=== PATIENT | female | born 1975 | race Asian ===

== ENCOUNTER 2018-04-15 12:51 | Emergency (ER) | payer OTHER ==
[~2018-04-15] VITALS: Ht 160 cm; Wt 68.0 kg
[2018-04-15 13:00] VITALS: BP_SYST 135
[2018-04-15] MEDS: KETOROLAC TROMETHAMINE 60 MG/2 ML VIAL IM ONE (14:30)
[2018-04-15 14:50] VITALS: BP_SYST 135
== END 2018-04-15 14:50 | disposition home or self-care (01) ==
LOC: SED 12:51
DX: S16.1XXA Strain of muscle, fascia and tendon at neck level, initial encounter (principal); R07.89 Other chest pain; M25.511 Pain in right shoulder; R03.0 Elevated blood-pressure reading, without diagnosis of hypertension; Z88.0 Allergy status to penicillin; V49.49XA Driver injured in collision with other motor vehicles in traffic accident, initial encounter; Y93.89 Activity, other specified; Y92.89 Other specified places as the place of occurrence of the external cause; Y99.8 Other external cause status
CPT/HCPCS: 71045; 72040; 73030; 96372; 99284; J1885